=== PATIENT | female | born 1990 ===

== ENCOUNTER 2021-09-12 19:03 | Emergency (ER) | payer BC, OTHER, SELFPAY ==
[2021-09-12 19:22] VITALS: BP 133/84; PULSE 89; RESP 16; TEMP 36.4; O2SAT 98; BMI 25.8
--- NOTE | 2021-09-12 19:55 | ED.WOUNDLAC ---
HPI - Wound/Laceration General Chief Complaint: Laceration/Wound Stated Complaint: Left hand lac Time Seen by Provider: 09/12/21 19:38 History of Present Illness HPI narrative: This 31-year-old female comes in with a laceration to the palm of her left hand. She was at work and accidentally cut into her hand with a knife. She has a linear laceration in 1 of the creases of the palm of her hand over the 2nd metatarsal that is about 3 cm in length. Related Data Home Medications Medication Instructions Recorded Confirmed No Known Home Medications 09/12/21 09/12/21 Allergies Allergy/AdvReac Type Severity Reaction Status Date / Time Sulfa (Sulfonamide Allergy Intermediate Hives Verified 09/12/21 19:34 Antibiotics) Review of Systems Status of ROS: Reports: 10 or more systems reviewed and unremarkable except as noted in History and below Narrative: Constitutional: No fevers, no weight gain or loss. Eyes: No discharge. No vision changes. HENT: No congestion, no sore throat, no ear pain. Cardiovascular: No chest pain, no palpitations. Respiratory: No shortness of breath, no wheezes, no cough. Gastrointestinal: No abdominal pain, no vomiting, no diarrhea. Genitourinary: No dysuria, no hematuria. Musculoskeletal: Normal range of motion. Skin: No rashes, no pruritis. Neurological: No dizziness, weakness, sensory change, speech change. Endo/Heme/Allergies: No bruising or bleeding. No polydipsia. Pysch: no suicidality, no anxiety, no insomnia. All other systems reviewed and are negative. [facility] Medical History (Updated 09/12/21 @ 19:58 by Mohsen Marin MD) Anxiety Depression Surgical History (Updated 09/12/21 @ 19:43 by Scout Pichardo RN) No significant past surgical history Social History Smoking Status: Current every day smoker Do you use any of these nicotine containing products: None Second hand tobacco smoke exposure: Yes How often do you have a drink containing alcohol: monthly or less How often do you have six or more drinks on one occasion: Never AUDIT-C Alcohol total score: 1 Non-prescribed substance use: denies use Exam Narrative: Exam Narrative: Constitutional: Well-developed, well-nourished, no acute distress. HEENT: Normocephalic, atraumatic. Neck: Normal range of motion. Nontender. Supple. Heart: Regular. No murmurs. Normal rate. Intact distal pulses. Lungs: Clear to auscultation. No chest discomfort. No wheezes, rhonchi, or rales. Abdomen: Normal bowel sounds. Nontender. No rebound tenderness. Genitalia: Deferred. Back: No midline tenderness. Normal range of motion. Extremities: Normal range of motion. 3 cm linear laceration on the palm of the left hand. There is no nerve or tendon dysfunction. Skin: Intact. No rash. Warm. No erythema or pallor. Neurologic: No altered sensation. No weakness. Alert and oriented. Psychiatric: No suicidality. No anxiety or depression. No insomnia. Nursing notes and vitals signs are reviewed. Const: Vital Signs, click to edit/add: Vital Signs - 24 hr 09/12/21 19:22 Temperature 97.6 F Pulse Rate [Right Pulse Oximeter] 89 Respiratory Rate 16 Blood Pressure [Ri ght Upper Arm] 133/84 Pulse Oximetry 98 Course Vital Signs Vital signs: Initial Vital Signs Temperature 97.6 F 09/12/21 19:22 Temperature Source Temporal Artery Scan 09/12/21 19:22 Pulse Rate 89 09/12/21 19:22 Respiratory Rate 16 09/12/21 19:22 Blood Pressure 133/84 09/12/21 19:22 Blood Pressure Mean 100 09/12/21 19:22 Blood Pressure Position Sitting 09/12/21 19:22 Pulse Oximetry 98 09/12/21 19:22 Oxygen Delivery Method 09/12/21 19:22 Vital Signs Temperature 97.6 F 09/12/21 19:22 Pulse Rate 89 09/12/21 19:22 Respiratory Rate 16 09/12/21 19:22 Blood Pressure 133/84 09/12/21 19:22 Pulse Oximetry 98 09/12/21 19:22 Temperature 97.6 F 09/12/21 19:22 Pulse Rate 89 09/12/21 19:22 Respiratory Rate 16 09/12/21 19:22 Blood Pressure 133/84 09/12/21 19:22 Pulse Oximetry 98 09/12/21 19:22 MDM - Wound/Laceration MDM Narrative Medical decision making narrative: This patient has a laceration to the palm of her left hand. She states that her tetanus is up-to-date. She states that she does not like hospitals or being in an emergency room. She wanted a quick repair of her hand. Actually Dermabond is an acceptable repair which was done after cleansing the wound. A Band-Aid was placed and instructions are given regarding wound care. Discharge Plan Discharge Clinical Impression: Laceration Patient Disposition: Home, Self-Care Condition: Stable Additional Instructions: Left hand laceration. Keep wound clean and dry. Increase activity as tolerated. Follow up with MD or return if worsening. Prescriptions: No Action No Known Home Medications 0RF Follow Up/Referrals: Jorge Zelaya MD [Primary Care Provider] - Stand Alone Forms: Queryly Info Instructions
== END 2021-09-12 20:14 | disposition home or self-care (01) ==
PROVIDERS: Emergency Provider Emergency Medicine Emergency Medical Services; PCP Surgery
DX: S61.412A Laceration without foreign body of left hand, initial encounter (principal); W26.0XXA Contact with knife, initial encounter
CPT/HCPCS: 12002; 99283